=== PATIENT | male | born 1990 ===

== ENCOUNTER 2018-09-13 18:17 | Emergency (ER) | payer OTHER ==
[2018-09-13 18:28] VITALS: BP 126/73; RESP 20; TEMP 98.3; O2SAT 99
--- NOTE | 2018-09-13 18:49 | ED PDOC ---
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 Denies dyspnea, dizziness, fever, cough, palpitations or sweating. No prior history of medical or cardiopulmonary issues. States as a child was told he had high cholesterol and possibly diabetes but hasnt seen doctor in many years. Past Medical History Reviewed: Historical Data, Nursing Documentation, Vital Signs Vital Signs: Last Vital Signs Temp 98.3 F 09/13/18 18:21 Pulse 66 09/13/18 18:21 Resp 20 09/13/18 18:21 BP 126/73 09/13/18 18:21 Pulse Ox 99 09/13/18 18:21 - Medical History PMH: No Chronic Diseases - Surgical History Surgical History: No Surg Hx - Family History Family History: States: [place] (uncles at age 50) - Social History Current smoker - smoking cessation education provided: No Drugs: Denies - Allergies Allergies/Adverse Reactions: Allergies Allergy/AdvReac Type Severity Reaction Status Date / Time No Known Allergies Allergy Verified 09/13/18 18:21 Review of Systems Constitutional: Negative for: Fever Eyes: Negative for: Pain ENT: Negative for: Ear Pain, Throat Pain Cardiovascular: Positive for: Chest Pain, Light Headedness. Negative for: Palpitations, Orthopnea, Edema Respiratory: Negative for: Cough, Shortness of Breath Gastrointestinal: Negative for: Vomiting, Abdominal Pain Genitourinary Male: Negative for: Dysuria Musculoskeletal: Negative for: Neck Pain, Back Pain Skin: Negative for: Rash, Lesions Neurological: Positive for: Dizziness. Negative for: Weakness, Numbness, Headache Psych: Negative for: Depression, Suicidal ideation Physical Exam - Reviewed Nursing Documentation Reviewed: Yes Vital Signs Reviewed: Yes - Physical Exam Appears: Positive for: Well, Non-toxic, No Acute Distress Head Exam: Positive for: ATRAUMATIC, NORMAL INSPECTION, NORMOCEPHALIC Skin: Positive for: Normal Color, Warm, DRY Eye Exam: Positive for: EOMI, Normal appearance, PERRL ENT: Positive for: Normal ENT Inspection Neck: Positive for: Normal, Painless ROM Cardiovascular/Chest: Positive for: Regular Rate, Rhythm Respiratory: Positive for: Normal Breath Sounds. Negative for: Decreased Breath Sounds, Wheezing, Respiratory Distress Pulses-Radial (L): 3+/4+ Pulses-Radial (R): 3+/4+ Gastrointestinal/Abdominal: Positive for: Soft. Negative for: Tenderness, Guarding Back: Positive for: Normal Inspection Extremity: Positive for: Normal ROM. Negative for: Swelling Neurologic/Psych: Positive for: Alert, Oriented. Negative for: Motor/Sensory Deficits - Laboratory Results Result Diagrams: 09/13/18 19:22 09/13/18 19:22 - ECG ECG: Positive for: Interpreted By Me ECG Rhythm: Positive for: Sinus Rhythm, Nonspecific Changes. Negative for: ST/T Changes Interpretation Of ECG: R axis Rate: 80 O2 Sat by Pulse Oximetry: 99 Pulse Ox Interpretation: Normal Medical Decision Making Medical Decision Making: workup for atypical chest pain in young male with ?pediatric history of DM check labs, EKG, ddimer, CXR, initiate tylenol for discomfort HEART score 1 Disposition - Clinical Impression Clinical Impression: Chest pain - Patient ED Disposition Is Patient to be Admitted: Transfer of Care - Disposition Disposition: Transfer of Care Disposition Time: 18:59 Condition: STABLE Additional Instructions: Follow up with primary medical doctor. Return to the emergency department if symptoms worsen or if new symptoms develop. Instructions: Chest Pain That Is Not Caused by the Heart (DC), Chest Pain (DC) Forms: [email or web address] (Faroese) Print Language: ARABIC Patient Signed Over To: Janny Garcia Handoff Comments: pending labs, imaging, re-eval, dispo/diagnosis
[2018-09-13 18:52] VITALS: PULSE 80
--- NOTE | 2018-09-13 19:22 | ED PDOC ---
- Laboratory Results Result Diagrams: 09/13/18 19:22 09/13/18 19:22 - ECG O2 Sat by Pulse Oximetry: 99 (RA) Pulse Ox Interpretation: Normal Medical Decision Making Medical Decision Making: Time: 1899 -- Patient endorsed to me by Dr. Greene, pending labs, imaging, re-eval and final ER diagnosis. Time:2053 --Labs and imaging are unremarkable. Pt to be discharged home. Discuss followup with PMD. In addition, return parameters discussed. Scribe Attestation: Documented by Doreen Dacosta, acting as a scribe for Janny Garcia MD. Provider Scribe Attestation: All medical record entries made by the Scribe were at my direction and personally dictated by me. I have reviewed the chart and agree that the record accurately reflects my personal performance of the history, physical exam, medical decision making, and the department course for this patient. I have also personally directed, reviewed, and agree with the discharge instructions and disposition. Disposition Counseled Patient/Family Regarding: Studies Performed, Diagnosis, Need For Followup - Clinical Impression Clinical Impression: Chest pain - POA Present On Arrival: None - Disposition Disposition: Routine/Home Disposition Time: 20:54 Condition: STABLE Forms: [facility] (Yi)
[2018-09-13 19:26] LABS: BASO % 0.6 % (0.0-2.0); EOS # 0.1 K/uL (0.0-0.7); HEMOGLOBIN 15.7 g/dL (12.0-18.0); LYMPH % 31.6 % (20.0-40.0); MEAN CELL VOLUME 89.3 fl (80.0-94.0); MEAN CORPUSCULAR HEMOGLOBIN 30.1 pg (27.0-31.0); MEAN CORPUSCULAR HGB CONC 33.7 g/dL (33.0-37.0); MEAN PLATELET VOLUME 8.3 fl (7.2-11.7); MONO # 0.5 K/uL (0.0-0.8); MONO % 7.2 % (0.0-10.0); NEUT # 3.8 K/uL (1.8-7.0); NEUT % 58.6 % (50.0-75.0); NRBC % 0.1 % (0.0-0.0); RBC 5.2 Mil/uL (4.40-5.90); RED CELL DISTRIBUTION WIDTH 13.3 % (11.5-14.5); WHITE BLOOD COUNT 6.5 K/uL (4.8-10.8)
[2018-09-13 19:30] LABS: INR 1.1; PROTHROMBIN TIME 12.6 Seconds (9.8-13.1)
[2018-09-13 19:33] LABS: PARTIAL THROMBOPLASTIN TIME 32.6 Seconds (25.6-37.1)
[2018-09-13 19:54] LABS: ALB/GLOB RATIO 1.2 (1.0-2.1); ALBUMIN 4.4 g/dL (3.5-5.0); ALT/SGPT 36 U/L (21-72); AST/SGOT 30 U/L (17-59); B-TYPE NATRIURETIC PEPTIDE 33.4 pg/ml (0-450); BLOOD UREA NITROGEN 14 mg/dl (9-20); CALCIUM 9.1 mg/dL (8.4-10.2); GFR NON-AFRICAN AMERICAN > 60
[2018-09-13 20:03] LABS: D DIMER < 200 ng/mlDDU (0-230)
--- NOTE | 2018-09-14 13:45 | RAD ---
Date of service: 09/13/2018 HISTORY: L chest /rib pain COMPARISON: No prior. TECHNIQUE: Chest PA and lateral FINDINGS: LUNGS: No active pulmonary disease. PLEURA: No significant pleural effusion identified. No pneumothorax apparent. CARDIOVASCULAR: No aortic atherosclerotic calcification present. Normal cardiac size. No pulmonary vascular congestion. OSSEOUS STRUCTURES: No significant abnormalities. VISUALIZED UPPER ABDOMEN: Normal. OTHER FINDINGS: None. IMPRESSION: No active disease.
--- NOTE | 2018-09-14 20:00 | CARD ---
APPROVED REPORT Date of service: 09/13/2018 EKG Measurement Heart [id number] <Conclusion> Normal sinus rhythm Rightward axis Borderline ECG
== END 2018-09-13 21:11 | disposition home or self-care (01) ==
LOC: H.ER 18:17
DX: R07.89 Other chest pain (principal)